=== PATIENT | male | born 1985 | race African-American/Black ===

== ENCOUNTER 2022-07-15 01:07 | Emergency (ER) | payer OTHER ==
[2022-07-15 01:14] VITALS: BP 119/75; PULSE 73; RESP 19; TEMP 98.3
--- NOTE | 2022-07-15 02:12 | XR ---
EXAMINATION TYPE: XR ankle complete RT DATE OF EXAM: 07/15/2022 COMPARISON: NONE HISTORY: Fall. Pain TECHNIQUE: 3 views FINDINGS: Ankle mortise is anatomic. I see no fracture nor dislocation. Joint spaces are normal. IMPRESSION: Negative right ankle exam. No fracture seen.
--- NOTE | 2022-07-15 02:32 | ED ---
Lower Extremity Injury HPI - General Chief Complaint: Extremity Injury, Lower Stated Complaint: right ankle injury, [facility] Time Seen by Provider: 07/15/22 02:21 Source: patient, RN notes reviewed Mode of arrival: ambulatory - History of Present Illness Initial Comments: This is a pleasant 36-year-old male who slipped on a wet floor at work and twisted his right ankle. Complaining of pain to the medial aspect of the ankle which is exacerbated by ambulation and movement. No other injuries. No headache, no fever or chills, no changes in vision or hearing, no sore throat or difficulty with speech, no neck pain, no chest pain or shortness of breath, no abdominal pain, no nausea or vomiting, no changes in urination or bowel movements, no numbness or tingling, no skin rashes or lesions. Past medical, surgical, social, and family history reviewed. MD Complaint: ankle injury - Related Data Allergies Allergy/AdvReac Type Severity Reaction Status Date / Time No Known Allergies Allergy Verified 07/15/22 01:13 Review of Systems ROS Statement: Those systems with pertinent positive or pertinent negative responses have been documented in the HPI. ROS Other: All systems not noted in ROS Statement are negative. Past Medical History Past Medical History: No Reported History History of Any Multi-Drug Resistant Organisms: None Reported Past Surgical History: No Surgical Hx Reported Past Psychological History: Depression Smoking Status: Never smoker Past Alcohol Use History: None Reported Past Drug Use History: None Reported General Exam General appearance: alert, in no apparent distress Head exam: Present: atraumatic, normocephalic, normal inspection Eye exam: Present: normal appearance, PERRL, EOMI. Absent: scleral icterus, conjunctival injection, periorbital swelling ENT exam: Present: normal exam, normal oropharynx, mucous membranes dry, mucous membranes moist, normal external ear exam Neck exam: Present: normal inspection. Absent: tenderness, meningismus, lymphadenopathy Respiratory exam: Present: normal lung sounds bilaterally. Absent: respiratory distress, wheezes, rales, rhonchi, stridor Cardiovascular Exam: Present: regular rate, normal rhythm, normal heart sounds. Absent: systolic murmur, diastolic murmur, rubs, gallop, clicks GI/Abdominal exam: Present: soft. Absent: distended, tenderness, guarding, rebound, rigid Extremities exam: Present: normal inspection, full ROM, tenderness, normal capillary refill. Absent: pedal edema, joint swelling, calf tenderness Right Knee exam: Present: normal inspection, full ROM. Absent: tenderness Lower Leg exam: Present: normal inspection. Absent: tenderness Ankle exam: Present: full ROM (With pain), tenderness (Over the deltoid ligamen t). Absent: swelling, abrasion, laceration, ecchymosis, crepitus, dislocation, erythema, anterior draw sign Foot/Toe exam: Present: normal inspection, full ROM. Absent: tenderness, abrasion, laceration, ecchymosis, deformity, crepitus, dislocation, erythema, amputation Neurovascular tendon exam: Present: no vascular compromise. Absent: pulse def icit, abnormal cap refill, motor deficit, pallor Back exam: Present: normal inspection Neurological exam: Present: alert, oriented X3, CN II-XII intact Psychiatric exam: Present: normal affect, normal mood Skin exam: Present: warm, dry, intact, normal color. Absent: rash Course Vital Signs 07/15/22 01:11 Temperature 98.3 F Pulse Rate 73 Respiratory 19 Rate Blood Pressure 119/75 O2 Sat by Pulse 97 Oximetry Medical Decision Making - Medical Decision Making Plain film x-rays interpreted by me reveal no acute pathology. Concurs with radiology interpretation Prefabricated ankle stirrup splint applied by me. Distal neurovascular status intact both pre-and post-application. Isolated right ankle injury, deltoid ligament sprain. Patient was told to return to the ER for any signs or symptoms worsen. Told to return immediately if any other problems arise. All questions answered. Treatment plan discussed. Patient in agreement Every effort has been made to ensure accuracy of this dictation. However, due to the limitations of electronic medical records and dictation devices, errors in charting still occur. Patient will need to follow up with [facility], sitting work only until reevaluation. Discussed conservative therapy, discussed RICE therapy. Supervising physician Dr. Murillo - Radiology Data Radiology results: report reviewed, image reviewed Disposition Clinical Impression: Sprain of deltoid ligament of right ankle, initial encounter Disposition: HOME SELF-CARE Condition: Good Instructions (If sedation given, give patient instructions): Ankle Sprain (ED), Ankle Stirrup Splint (ED) Additional Instructions: Follow-up with [facility]. Return to the ER immediately if any symptoms worsen, new symptoms arise, or any other problems develop. Is patient prescribed a controlled substance at d/c from ED?: No Referrals: None,Stated [Primary Care Provider] - 1-2 days Time of Disposition: 02:32
== END 2022-07-15 02:50 | disposition home or self-care (01) ==
LOC: EC 01:07
DX: S93.421A Sprain of deltoid ligament of right ankle, initial encounter (principal); F32.A Depression, unspecified; W18.40XA Slipping, tripping and stumbling without falling, unspecified, initial encounter; Y99.0 Civilian activity done for income or pay
CPT/HCPCS: 29515; 99283

== ENCOUNTER → 2022-07-16 | Outpatient (CLI) | payer OTHER ==
--- NOTE | 2022-07-16 11:45 | XR ---
EXAMINATION TYPE: XR foot complete RT DATE OF EXAM: 07/16/2022 COMPARISON: NONE HISTORY: 36-year-old male right foot twisting injury after slip and fall, pain. TECHNIQUE: 3 views FINDINGS: Early mild degenerative spurring at the first MTP joint. No acute fracture, subluxation, dislocation seen. Joint spaces throughout are maintained. IMPRESSION: No acute osseous abnormality seen.
== END | disposition home or self-care (01) ==
LOC: RADXRMAIN 11:27
PROVIDERS: ATTEND Emergency Medicine
DX: S93.601A Unspecified sprain of right foot, initial encounter (principal)

== ENCOUNTER → 2022-07-27 | Outpatient (CLI) | payer OTHER ==
--- NOTE | 2022-07-27 16:05 | XR ---
EXAMINATION TYPE: XR ankle complete RT, XR foot complete RT DATE OF EXAM: 07/27/2022 CLINICAL HISTORY: Recent injury with continued pain. TECHNIQUE: Frontal, lateral and oblique images of the right ankle and foot are obtained. COMPARISON: Prior right ankle and foot xray July 15 and July 16, 2022. FINDINGS: There is no acute fracture/dislocation evident in the right ankle. The ankle mortise appe ars stable and within normal limits. The overlying soft tissue appears unremarkable. There is no acute fracture or dislocation evident in the right foot. The joint spaces in the right f oot are stable and satisfactory. Overlying soft tissue remains unremarkable. IMPRESSION: There is no acute fracture or dislocation in the right ankle or foot. No significant matthias nge from recent studies.
== END | disposition home or self-care (01) ==
LOC: RADXRMAIN 15:43
PROVIDERS: ATTEND Emergency Medicine
DX: S93.601D Unspecified sprain of right foot, subsequent encounter (principal); S93.401D Sprain of unspecified ligament of right ankle, subsequent encounter

== ENCOUNTER 2022-10-20 03:49 | Emergency (ER) | payer OTHER ==
[2022-10-20 04:50] VITALS: TEMP 97.8
--- NOTE | 2022-10-20 05:40 | XR ---
EXAMINATION TYPE: XR chest 2V DATE OF EXAM: 10/20/2022 COMPARISON: NONE HISTORY: Cough TECHNIQUE: 2 views FINDINGS: Heart and mediastinum are normal. Lungs are clear. Diaphragm is normal. Bony thorax appears normal. IMPRESSION: Normal chest.
[2022-10-20] MEDS ORDERED: predniSONE 20 MG TAB PO STA (06:12)
--- NOTE | 2022-10-20 06:14 | ED ---
URI HPI - General Chief Complaint: Upper Respiratory Infection Stated Complaint: Cough, Difficulty Breathing Time Seen by Provider: 10/20/22 05:02 Source: patient Mode of arrival: ambulatory Limitations: no limitations - History of Present Illness Initial Comments: 36-year-old male presents emergency department reporting shortness of breath. States for the past couple of days he has had cough, congestion, sore throat. Reports that his cough is mildly productive. Does have sick contacts with similar symptoms. Admits to fevers with chills. Admits to nausea without vomiting. He is taking DayQuil for his symptoms without any relief. No previous history of underlying lung disease. He does smoke marijuana and vape. He denies any chest pain. No family history of sudden cardiac . No alleviating, precipitating or modifying factors - Related Data Previous Rx's Medication Instructions Recorded Albuterol Inhaler [Ventolin Hfa 1 - 2 puff INHALATION Q6H PRN #1 10/20/22 Inhaler] unit Azithromycin [Zithromax Z Pack] 1 tab PO DIRECTED #6 tab 10/20/22 guaiFENesin-Coden 100-10MG/5ML 5 ml PO Q6H PRN 3 Days #60 ml 10/20/22 [Robitussin AC] predniSONE [Deltasone] 20 mg PO BID #10 tab 10/20/22 Allergies Allergy/AdvReac Type Severity Reaction Status Date / Time No Known Allergies Allergy Verified 07/15/22 01:13 Review of Systems ROS Statement: Those systems with pertinent positive or pertinent negative responses have been documented in the HPI. ROS Other: All systems not noted in ROS Statement are negative. Past Medical History Past Medical History: No Reported History History of Any Multi-Drug Resistant Organisms: None Reported Past Surgical History: No Surgical Hx Reported Past Psychological History: Depression Smoking Status: Never smoker Past Alcohol Use History: None Reported Past Drug Use History: None Reported General Exam Limitations: no limitations General appearance: alert, in no apparent distress Head exam: Present: atraumatic, normocephalic, normal inspection Eye exam: Present: normal appearance, PERRL, EOMI. Absent: scleral icterus, conjunctival injection, periorbital swelling ENT exam: Present: normal exam, mucous membranes moist, other (nasal congestion) Neck exam: Present: normal inspection. Absent: tenderness, meningismus, lymphadenopathy Respiratory exam: Present: normal lung sounds bilaterally. Absent: respiratory distress, wheezes, rales, rhonchi, stridor Cardiovascular Exam: Present: regular rate, normal rhythm, normal heart sounds. Absent: systolic murmur, diastolic murmur, rubs, gallop, clicks GI/Abdominal exam: Present: soft, normal bowel sounds. Absent: distended, tenderness, guarding, rebound, rigid Extremities exam: Present: normal inspection, full ROM, normal capillary refill. Absent: tenderness, pedal edema, joint swelling, calf tenderness Back exam: Present: normal inspection Neurological exam: Present: alert, oriented X3, CN II-XII intact Psychiatric exam: Present: normal affect, normal mood Skin exam: Present: warm, dry, intact, normal color. Absent: rash Course Vital Signs 10/20/22 10/20/22 10/20/22 03:57 04:39 04:52 Temperature 98.3 F 97.8 F Pulse Rate 88 85 Respiratory 20 14 22 Rate Blood Pressure 115/79 127/77 O2 Sat by Pulse 98 97 Oximetry 10/20/22 06:20 Temperature Pulse Rate 76 Respiratory 18 Rate Blood Pressure 120/73 O2 Sat by Pulse 99 Oximetry Medical Decision Making - Medical Decision Making Was pt. sent in by a medical professional or institution (, [facility], [facility], urgent care, hospital, or usp...) When possible be specific @ -No Did you speak to anyone other than the patient for history (EMS, parent, family, police, friend...)? What history was obtained from this source @ -No Did you review nursing and triage notes (agree or disagree)? Why? @ -I reviewed and agree with nursing and triage notes Were old charts reviewed (outside hosp., previous admission, EMS record, old EKG, old radiological studies, urgent care reports/EKG's, usp records)? Report findings @ -No old charts were reviewed Differential Diagnosis (chest pain, altered mental status, abdominal pain women, abdominal pain men, vaginal bleeding, weakness, fever, dyspnea, syncope, headache, dizziness, GI bleed, back pain, seizure, CVA, palpatations, mental health, musculoskeletal)? @ -Covid, influenza, bronchitis, URI EKG interpreted by me (3pts min.). @ -Not done X-rays interpreted by me (1pt min.). @ -Yes CT interpreted by me (1pt min.). @ -None done U/S interpreted by me (1pt. min.). @ -None done What testing was considered but not performed or refused? (CT, X-rays, U/S, labs)? Why? @ -None What meds were considered but not given or refused? Why? @ -None Did you discuss the management of the patient with other professionals (professionals i.e. DrKylee, PA, CHILDREN'S SERVICE WORKER, lab, RT, psych nurse, social welfare clerk, bander hand, teacher, returning officer, case folder)? Give summary @ -No Was smoking cessation discussed for >3mins.? @ -Yes Was critical care preformed (if so, how long)? @ -No Were there social determinants of health that impacted care today? How? (Homelessness, low income, unemployed, alcoholism, drug addiction, transportation, low edu. Level, literacy, decrease access to med. care, residential, rehab)? @ -No Was there de-escalation of care discussed even if they declined (Discuss DNR or withdrawal of care, Hospice)? DNR status @ -No What co-morbidities impacted this encounter? (DM, HTN, Smoking, COPD, CAD, Cancer, CVA, ARF, Chemo, Hep., AIDS, mental health diagnosis, sleep apnea, morbid obesity)? @ -None Was patient admitted / discharged? Hospital course, mention meds given and route, prescriptions, significant lab abnormalities, going to OR and other pertinent info. @ - Arrival patient is placed into room 7. History and physical exam was performed. 12-lead EKG is obtained. Patient is swabbed for influenza and Covid. Chest x-rays performed. Upon return results they are discussed with the patient. Patient's clinical symptoms are consistent with bronchitis at this time. We'll treat with an inhaler, steroids and codeine cough syrup. Patient is to use these medications as directed up with primary care doctor in 2-4 days. Return for any new or worsening symptoms. Patient was agreeable to treatment plan and is discharged home in stable condition Undiagnosed new problem with uncertain prognosis? @ -Yes Drug Therapy requiring intensive monitoring for toxicity (Heparin, Nitro, Insulin, Cardizem)? @ -No Were any procedures done? @ -No Diagnosis/symptom? @ -acute cough, acute bronchitis Acute, or Chronic, or Acute on Chronic? @ -acute Uncomplicated (without systemic symptoms) or Complicated (systemic symptoms)? @ -uncomplicated Side effects of treatment? @ -Allergic reaction Exacerbation, Progression, or Severe Exacerbation? @ -No Poses a threat to life or bodily function? How? (Chest pain, [place], [place], pneumonia, PE, COPD, DKA, ARF, appy, cholecystitis, CVA, Diverticulitis, Homicidal, Suicidal, threat to staff... and all critical care pts) @ -No - Lab Data Lab Results 10/20/22 Range/Units 04:35 Influenza Type A (PCR) Not Detected (Not Detectd) Influenza Type B (PCR) Not Detected (Not Detectd) RSV (PCR) Not Detected (Not Detectd) SARS-CoV-2 (PCR) Not Detected (Not Detectd) - EKG Data EKG Comments: EKG demonstrates sinus rhythm with a rate of 67. TX interval 194. QRS 91. QTC of 419. Inverted T-wave lead 3. No acute ST segment elevations. Disposition Clinical Impression: Bronchitis Disposition: HOME SELF-CARE Condition: Stable Instructions (If sedation given, give patient instructions): Upper Respiratory Infection (ED) Additional Instructions: Please started taking the prednisone tomorrow. You may use the inhaler and cough syrup today. Follow-up with your doctor in 2-4 days and return for any new or worsening symptoms Prescriptions: predniSONE [Deltasone] 20 mg PO BID #10 tab guaiFENesin-Coden 100-10MG/5ML [Robitussin AC] 5 ml PO Q6H PRN 3 Days #60 ml PRN Reason: Cough Albuterol Inhaler [Ventolin Hfa Inhaler] 1 - 2 puff INHALATION Q6H PRN #1 unit PRN Reason: Shortness Of Breath Azithromycin [Zithromax Z Pack] 1 tab PO DIRECTED #6 tab Is patient prescribed a controlled substance at d/c from ED?: No Referrals: None,Stated [Primary Care Provider] - 1-2 days Time of Disposition: 06:25
[2022-10-20 06:22] VITALS: BP 120/73; PULSE 76; RESP 18
== END 2022-10-20 06:43 | disposition home or self-care (01) ==
LOC: EC 03:49
DX: J40 Bronchitis, not specified as acute or chronic (principal); Z20.822 Contact with and (suspected) exposure to COVID-19
CPT/HCPCS: 93005; 87636; 71046; 99285; J7512